=== PATIENT | male | born 1965 | race Two or more races ===

== ENCOUNTER 2016-07-11 21:48 | Emergency (ER) | payer BC, SELFPAY ==
[~2016-07-11] VITALS: Ht 177.8 cm; Wt 124.9 kg
[2016-07-12 01:16] LABS: ASPARTATE AMINO TRANSFERASE 180 U/L (15-37); BLOOD UREA NITROGEN 6 mg/dL (7-18)
[2016-07-12] MEDS ORDERED: POTASSIUM CHLORIDE 20 MEQ TAB.ER.PRT ONE (01:43)
[2016-07-12] MEDS ORDERED: POTASSIUM CHLORIDE 20 MEQ TAB.ER.PRT PO ONE (02:00)
[2016-07-12 02:05] VITALS: BP 132/93
== END 2016-07-12 02:15 | disposition home or self-care (01) ==
LOC: ED 23:59
DX: R19.7 Diarrhea, unspecified (principal); K75.9 Inflammatory liver disease, unspecified; F10.20 Alcohol dependence, uncomplicated; F17.200 Nicotine dependence, unspecified, uncomplicated
CPT/HCPCS: 36415; 74022; 80053; 81001; 83605; 83690; 85025; 93005